=== PATIENT | male | born 1985 | race Caucasian/White ===

== ENCOUNTER 2023-11-12 12:31 | Emergency (ER) | payer OTHER, SELFPAY ==
[2023-11-12 12:38] VITALS: BP 158/95; PULSE 74; RESP 20; TEMP 37.3; O2SAT 97
--- NOTE | 2023-11-12 12:41 | ED.URI ---
HPI - URI/Sore Throat General Chief Complaint: Upper Respiratory Infection Stated Complaint: head and chest congestion Time Seen by Provider: 11/12/23 12:48 Source: patient, RN notes reviewed and old records reviewed Mode of arrival: ambulatory Limitations: no limitations History of Present Illness HPI Narrative: 38 year old male presents to [facility] care with complaints of head and chest congestion for the past month and doesn't seem to be getting better. Patient reports that he has been coughing and hacking up mucous with green/yellow mucous. Patient reports that he has been taking DayQuil and Ibuprofen for his symptoms. Patient reports that his throat hurt at the begining of his symptoms but that resolved. Patient reports that he did have 101F temperature yesterday and has had some ear fullness. MD elicited complaint: cough and sore throat Onset (ago): month(s) (1) Treatments prior to arrival: ibuprofen and other (DayQuil) Related Data Allergies Allergy/AdvReac Type Severity Reaction Status Date / Time No Known Allergies Allergy Verified 11/12/23 12:41 Review of Systems Review of Systems: CONSTITUTIONAL:Reports malaise, chills, sweats, or fever. EYES: Denies visual changes, redness, or discharge. ENT: Reports rhinorrhea, congestion, sinus pain, fullness otalgia and no present sore throat. CARDIOVASCULAR: Denies chest pain, palpitations, or edema. RESPIRATORY: Reports cough.? Denies dyspnea. GASTROINTESTINAL: Denies abdominal pain, nausea, vomiting, diarrhea SKIN: Denies rash or itching. MUSCULOSKELETAL: Denies myalgia. NEUROLOGIC: Denies headache. All systems reviewed & are unremarkable except as noted in HPI and below PMFSH Social History Social History (Updated 11/13/23 @ 17:38 by Ana Christensen NP) Smoking packs per day: 0.5 Smoking cigarettes per day: 10.0 Years smoked: 8 Smoking pack-years: 4.00 Smoking status: Former smoker Tobacco type: cigarettes Alcohol intake: current Alcohol use details: social Substance use type: does not use Living arrangements: with family Gender identity (if verbalized by the patient): Male Comments At time of signature, agree with nursing past medical, surgical, social and family history. There is no relevant family history pertinent to the presenting complaint Exam Narrative: GENERAL: Well-appearing, well-nourished, and in no acute distress. HEAD: Normocephalic EYES: PERRLA, conjunctivae clear ENT: Nares clear, turbinates edematous and erythematous, clear discharge. Mucous membranes moist. TM pearly briones with dull light reflex bilaterally; no tragal tenderness. Oropharynx erythematous without lesions. Tonsils not enlarged and without exudate, no drooling, no hoarseness, no trismus, uvula midline.post nasal drainage NECK: Supple. No lymphadenopathy CHEST:Coarse to auscultation, breath sounds equal. faint scattered wheezing,no rhonchi, rales, or stridor. No respiratory distress, speaks in full sentences.[id number]% on room air HEART: Regular rate and rhythm. No murmur heard. SKIN: Warm, dry, no rash. NEURO: Alert and oriented x3. PSYCH: Normal mood and affect Course Course Emergency Course: Patient is aware of diagnosis, understands and agrees to treatment plan.? Anticipatory guidance given.? Patient agrees to follow-up as directed and is aware of reasons to seek care at the emergency department. Portions of this record may have been created with voice recognition software Level of Care: Express Care Visit Vital Signs Vital signs: Vital Signs Temperature 37.3 C 11/12/23 12:38 Pulse Rate 74 11/12/23 12:38 Respiratory Rate 20 11/12/23 12:38 Blood Pressure 158/95 H 11/12/23 12:38 Pulse Oximetry 97 11/12/23 12:38 Oxygen Delivery Room Air 11/12/23 12:38 Temperature 37.3 C 11/12/23 12:38 Pulse Rate 74 11/12/23 12:38 Respiratory Rate 20 11/12/23 12:38 Blood Pressure 158/95 H 11/12/23
== END 2023-11-12 13:09 | disposition home or self-care (01) ==
PROVIDERS: Emergency Provider Registered Nurse
DX: J40 Bronchitis, not specified as acute or chronic (principal); J01.40 Acute pansinusitis, unspecified; Z87.891 Personal history of nicotine dependence
CPT/HCPCS: 99213; G0463

== ENCOUNTER 2024-07-27 01:33 | Emergency (ER) | payer OTHER, SELFPAY ==
--- OUTSIDE RECORDS SUMMARY | 2024-07-27 01:34 | XMS_ITS | Clinical Summary ---
Author Organization [facility] Address [address] [place] [address] Phone Care Team Providers Care Director Card Name Role Phone Minesh Yoder MD Primary Care Provider [phone] Allergies No known active allergies Medications No known medications Active Problems No known active problems Family History Relation Name Status Comments Father Alive Mother Alive Sister Alive Social History Tobacco Use Types Packs/Day Years Used Date Smoking Tobacco: Former Smokeless Tobacco: Never Alcohol Use Standard Drinks/Week Comments Yes 0 (1 standard drink = 0.6 oz pur e alcohol) social PHQ-2 Answer Date Recorded Total Score - Questions 1-9 0 05/0 09/2020 Sex and Gender Information Value Date Recorded Sex Assigned at Not on file Legal Sex Male 1:16 PM CDT Gender Identity Not on file Sexual Orientation Not on file Last Filed Vital Signs Vital Sign Reading Time Taken Comments Blood Pressure 126/82 11/02/2020 8:08 AM CDT Pulse 53 11/02/2020 8:08 AM CDT Temperature 36.5 ??C (97.7 ??F) 11/02/2020 8:08 AM CD T Respiratory Rate 16 11/02/2020 8:08 AM CDT Oxygen Saturation 98% 11/02/2020 8:08 AM CDT Inhaled Oxygen Concentration - - Weight 104.8 kg (231 lb) 11/02/2020 8:08 AM CDT Height 182.9 cm (6') 11/02/2020 8:08 AM CDT Body Mass Index 31.33 11/02/2020 8:08 AM CDT Plan of Treatment Health Maintenance Due Date Last Done Comments Hepatitis C Virus (HCV) Screening 1985 TdaP Immunization 1985 Influenza Immunization (#1) 2024 SARS-COV-2 Immunization (2023- season) 2024 Respiratory Syncytial Virus (RSV) Immunization (Adult) (1 - 1-dose 75+ series) 2060 DTaP/Tdap/Td Immunization Discontinued 1989, 05/04/1987, 04/07/1986, Additional history exists Hepatitis B Immunization Completed 998, 07/28/1997, 06/23/1997 Meningococcal Immunization (ACWY) Aged Out No longer eligible based on patient's age to complete this topic Pneumococcal Immunization Combined Aged Out No longer eligible based on patient's age to complete this topic Rotavirus Immunization Aged Out No lo nger eligible based on patient's age to complete this topic Insurance [facility] Care Teams Director Card Relationship Specialty Start Date End Date Minesh Yoder MD [address] [address] PCP - General Family Medicine 11/01/20
--- OUTSIDE RECORDS SUMMARY | 2024-07-27 01:34 | XMS_ITS | Clinical Summary ---
Author Organization [facility] [address] Address [address] [place] [address] Phone Care Team Providers Care Data Processing Operator Name Role Phone Bina Sibley NP Primary Care Provider [phone] Allergies No known active allergies Medications buPROPion XL (WELLBUTRIN XL) 150 mg 24 hr tablet Take 1 tablet (150 mg total) by mouth every morning for 10 days, THEN 2 tablets (300 mg total) every morning. 130 tablet 01/23/2022 Active Active Problems No known active problems Immunizations Name Administration Dates Next Due DTP 10/05/1989, 7,04/07/1986,02/03/1986,0 1985 Hep B Vaccine 12/22/1997 Hep B, Adolescent or Pediatric 07/28/1997,1996 Influenza, Unspecified 09/01/2021(Deferred: Karla ent Refused) OPV 10/05/1989,02/02/1987,02/03/1986 ,1985 Social History Tobacco Use Types Packs/Day Years Used Date Smoking Tobacco: Former Smokeless Tobacco: Current PHQ-2 Answer Date Recorded PHQ-2 Total Score (If total score is 3 or more points, staff should administer the PHQ-9) 4 01/23/2022 Personal Safety Answer Date Recorded Getting School Help Needed Not on file 08/26 Sex and Gender Information Value Date Recorded Sex Assigned at Not on file 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 Gender Identity Not on file Sexual Orientation Not on file Obstetrics History Last Filed Vital Signs Vital Sign Reading Time Taken Comments Blood Pressure 144/77 01/23/2022 3:54 PM CDT Pulse 68 01/23/2022 3:54 PM CDT Temperature 36.7 ??C (98 ??F) 12/12/2021 3:49 PM CDT Respiratory Rate 20 01/23/2022 3:54 PM CDT Oxygen Saturation 98% 01/23/2022 3:54 PM CDT Inhaled Oxygen Concentration - - Weight 107 kg (236 lb) 01/23/2022 3:54 PM CDT Height 182.9 cm (6' 0.01 ) 01/23/2022 3:54 PM CD T Body Mass Index 32 01/23/2022 3:54 PM CDT Plan of Treatment Health Maintenance Due Date Last Done Comments Hepatitis C Screening 1985 DTaP/Tdap/Td Vaccine (6 - Tdap) 1996 10/05/1989, 05/04/1987, 04/07/1986, Additional history exists Varicella Vaccines (1 of 2 - 13+ 2-dose series) 1998 Regular Well Visit/Exam 18-64 06/05/2020 06/05/2019 Depression Screening 01/23/2023 01/23/2022, 10/05/2021, 06/05/2019 Influenza Vaccine (#1) 2024 HPV Vaccines Aged Out No longer eligi ble based on patient's age to complete this topic Pneumococcal vaccine <65 Aged Out No longer eligible based on patient's age to complete this topic [place] [address] [place] [address] Member Subscriber Plan / Payer (Ef fective 2017-Present) Name:Davy Wiggins Relation to Subscriber:Self Name:Davy Wiggins Payer ID:[id number] (NAIC) Group ID:[id number] Type:COMMERCIAL Address: [address] [address] Care Teams Data Processing Operator Relationship Specialty Start Date End Date Bina Sibley NP PCP - General Family Medicine 10/05/21
--- OUTSIDE RECORDS SUMMARY | 2024-07-27 01:34 | XMS_ITS | Referral Summary ---
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 [place] [id number] Care Teams Interior Surface Insulation Worker Relationship Specialty Start Date End Date Bina Sibley NP PCP - General Family Medicine 10/05/21
[2024-07-27 01:35] VITALS: BP 145/105; PULSE 88; RESP 18; TEMP 36.6; O2SAT 98
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
--- NOTE | 2024-07-27 01:45 | PC.NURSE ---
Immediate direct pressure to spurting laceration wound applied. Leg and area cleansed w/ saline, BP cuff used as tourniquet to stop bleeding upon arrival.
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
--- NOTE | 2024-07-27 02:11 | PC.NURSE ---
AT THIS TIME, [facility] HAS NOT ARRIVED FOR ED ASSISTANCE. PATIENT HAS THIGH CUFF IN PLACE TO OCCLUDE BLOOD FLOW TO RIGHT LOWER LEG TO PREVENT ARTERIAL BLEEDING. ALONG WITH PRESSURE BEING HELD BY EDDIE GARCIA. PATIENT IS ABLE TO MOVE HIS RIGHT LOWER LEG, ABLE TO MOVE AND WIGGLE TOES.
[2024-07-27] MEDS: TETANUS,DIPHTHERIA,AC PERTUSSIS ADULT 0.5 ML (ADACEL) IM (02:19)
[2024-07-27] MEDS: SODIUM CHLORIDE 0.9% IV 1,000 ML 999 ML IV CONT (02:20)
[2024-07-27] MEDS: MORPHINE SULFATE (*CRX) 4 MG/ML INJ IV PUSH (02:21)
[2024-07-27 02:25] VITALS: BP 141/98; PULSE 100; RESP 20; O2SAT 98
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
--- OUTSIDE RECORDS SUMMARY | 2024-07-27 02:43 | XMS_ITS | Clinical Summary ---
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
--- OUTSIDE RECORDS SUMMARY | 2024-07-27 02:43 | XMS_ITS | Clinical Summary ---
Author Organization [facility] Address [address] [place] [address] Phone Care Team Providers Care Assessor Name Role Phone Minesh Yoder MD Primary Care Provider [phone] Allergies No known active allergies Medications No [...] patient's age to complete this topic Insurance [facility] Care Teams Assessor Relationship Specialty Start Date End Date Minesh Yoder MD [address] [address] PCP - General Family Medicine 11/01/20
--- OUTSIDE RECORDS SUMMARY | 2024-07-27 02:43 | XMS_ITS | Referral Summary ---
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 [place] [address] Care Teams Retail Pharmacy Technician Relationship Specialty Start Date End Date Bina Sibley NP PCP - General Family Medicine 10/05/21
== END 2024-07-27 02:25 | disposition short-term general hospital (02) ==
LOC: CHSED 02:42
PROVIDERS: Emergency Provider Emergency Medicine
DX: S81.811A Laceration without foreign body, right lower leg, initial encounter (principal); R58 Hemorrhage, not elsewhere classified; Z87.891 Personal history of nicotine dependence; Z23 Encounter for immunization; W45.8XXA Other foreign body or object entering through skin, initial encounter
CPT/HCPCS: 90471; 90715; 96374; 99285; J2270; J7030